=== PATIENT | female | born 1965 | race Hispanic/Latino ===

== ENCOUNTER 2022-01-22 14:00 | Outpatient (RCR) | payer BC | END 2022-01-23 | LOC: PT 14:00 | PROVIDERS: ATTEND Specialist | DX: M17.0 Bilateral primary osteoarthritis of knee (principal) | CPT/HCPCS: 97139 ==

== ENCOUNTER 2022-01-31 10:00 | Outpatient (RCR) | payer BC | END 2022-02-22 | LOC: PT 10:00 | PROVIDERS: ATTEND Specialist | DX: M17.0 Bilateral primary osteoarthritis of knee (principal) ==